=== PATIENT | female | born 2000 | race Caucasian/White ===

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

== ENCOUNTER → 2024-01-31 | Outpatient (CLI) | payer OTHER ==
--- NOTE | 2024-01-31 11:36 | US ---
EXAMINATION TYPE: US abdomen complete DATE OF EXAM: 01/31/2024 COMPARISON: 2017 CLINICAL INDICATION: Female, 23 years old with history of R11.0 NAUSEA; Patient states stomach flu go ing around at work TECHNIQUE: Multiple sonographic images of the abdomen are obtained. FINDINGS: EXAM MEASUREMENTS: Liver Length: 13.2 cm Gallbladder Wall: 0.19 cm CBD: 0.22 cm Spleen: 9.7 x 10.4 x 3.7 cm Right Kidney: 8.4 x 3.4 x 3.3 cm Left Kidney: 9.8 x 5.3 x 4.0 cm [employer] NOTES: Pancreas: wnl Liver: wnl Gallbladder: wnl Evidence for sonographic Pro's sign: No CBD: wnl Spleen: wnl Right Kidney: wnl Left Kidney: wnl Upper IVC: wnl Abd Aorta: wnl IMPRESSION: 1. Unremarkable abdomen ultrasound
== END | disposition home or self-care (01) ==
LOC: RADUSWWP 10:18
PROVIDERS: ATTEND Internal Medicine
DX: R11.0 Nausea (principal)
CPT/HCPCS: 76700

== ENCOUNTER → 2024-02-15 | Outpatient (CLI) | payer OTHER ==
--- NOTE | 2024-02-15 10:14 | XR ---
EXAMINATION TYPE: XR hand limited RT DATE OF EXAM: 02/15/2024 CLINICAL HISTORY: pain TECHNIQUE: Frontal, lateral images of the right hand are obtained. COMPARISON: None. FINDINGS: There is no acute fracture/dislocation evident. The joint spaces appear within normal limi ts. The overlying soft tissue appears unremarkable. IMPRESSION: There is no acute fracture or dislocation ICD 10 NO FRACTURE, INITIAL EVALUATION
== END | disposition home or self-care (01) ==
LOC: RADXRMAIN 09:45
PROVIDERS: ATTEND Internal Medicine
DX: M79.644 Pain in right finger(s) (principal); M79.641 Pain in right hand